=== PATIENT | male | born 1975 | race African-American/Black ===

== ENCOUNTER 2024-10-27 12:55 | Inpatient (IN) | payer SELFPAY ==
[~2024-10-27] VITALS: Ht 188 cm; Wt 164.5 kg
[2024-10-27 15:14] LABS: BASOPHILS % 0.6 % (0.0-2.0); CHLORIDE 99 mEq/L (98-107); EOSINOPHILS % 1.2 % (0.0-5.0); HEMATOCRIT. 46.8 % (42.0-52.0); HEMOGLOBIN. 15.4 g/dL (14.0-18.0); MEAN CORPUSCULAR HEMOGLOBIN 30.5 pg (28.0-32.0); MEAN CORPUSCULAR HGB CONC 32.8 g/dL (31.0-37.0); MEAN CORPUSCULAR VOLUME 93.2 fL (80.0-94.0); MEAN PLATELET VOLUME 9.7 fl (7.4-10.4); MONOCYTES % 6.9 % (2.0-8.0); NEUTROPHILS % 59.3 % (40.0-76.0); PLATELET 341 x1000/uL (130-400); POTASSIUM 4.3 mEq/L (3.5-5.1); RED BLOOD CELL COUNT 5.03 mill/uL (4.7-6.1); RED CELL DISTRIBUTION WIDTH 13.9 % (11.6-14.6); SODIUM 131 mEq/L (136-145); WHITE BLOOD COUNT 8.7 x1000/uL (4.5-11.0)
[2024-10-27 15:15] LABS: CALCIUM 10.3 mg/dL (8.7-10.4); CARBON DIOXIDE 14 mEq/L (21-32)
[2024-10-27 15:20] LABS: CREATININE 1.5 mg/dL (0.6-1.3); UREA NITROGEN BLOOD 10 mg/dL (9-23)
[2024-10-27 15:33] LABS: CLARITY URINE CLEAR (CLEAR); COLOR URINE YELLOW (YELLOW); GLUCOSE URINE 3+ (NEGATIVE); KETONES URINE 4+ (NEGATIVE); LEUKOCYTE ESTERASE URINE NEGATIVE (NEGATIVE); NITRITE URINE NEGATIVE (NEGATIVE); OCCULT BLOOD URINE 1+ (NEGATIVE); PH URINE 5.5 (4.5-8.0); PROTEIN URINE 1+ (NEGATIVE); SPECIFIC GRAVITY URINE 1.037 (1.005-1.030)
[2024-10-27 15:48] LABS: BACTERIA URINE FEW; RBC URINE NONE SEEN /hpf (0-2); SQUAMOUS EPITHELIAL CELL URINE NONE SEEN /lpf (RARE/1+); WBC URINE 0-2 /hpf (0-2); YEAST URINE NONE SEEN
[2024-10-27 15:52] LABS: GLUCOSE 437 mg/dL (70-105)
[2024-10-27] MEDS ORDERED: DEXTROSE 50% WATER 50ML SYRINGE IV PRN ×2 (16:00→17:45)
[2024-10-27] MEDS ORDERED: BLOOD SUGAR DIAGNOSTIC STRIP TEST PRN ×2 (16:00→17:45)
[2024-10-27] MEDS ORDERED: SODIUM CHLORIDE 0.9% 1,000 ML IV SCH (16:00)
[2024-10-27] MEDS ORDERED: KCL 20MEQ/100ML PREMIX 100 ML IV PRN (16:00)
[2024-10-27] MEDS ORDERED: MAGNESIUM 2 G PREMIX 50 ML IV PRN ×2 (16:00→17:45)
[2024-10-27] MEDS: BLOOD SUGAR DIAGNOSTIC STRIP TEST SCH ×2 (16:00→17:45)
[2024-10-27] MEDS ORDERED: INSULIN REGULAR (DRIP) 100 UNITS in SODIUM CHLORIDE 0.9% 99 ML IV SCH ×2 (16:00→17:45)
[2024-10-27] MEDS ORDERED: DEXT 5%/LACTATED RINGERS 1,000 ML IV SCH (16:00)
[2024-10-27] MEDS ORDERED: SODIUM PHOSPHATE 15 MMOL in SODIUM CHLORIDE 0.9% 245 ML IV PRN (16:00)
[2024-10-27] MEDS ORDERED: POTASSIUM CHLORIDE 40 MEQ in SODIUM CHLORIDE 0.9% 230 ML IV PRN (16:00)
[2024-10-27 16:06] LABS: BETA HYDROXYBUTYRATE 6.9 mMol/L (0.0-0.3)
[2024-10-27] MEDS: SODIUM CHLORIDE 0.9% 1,000 ML IV ONE (16:10)
[2024-10-27 16:43] LABS: BG BASE EXCESS -14.3 mmol/L (-2.0-3.0); BG CARBOXYHEMOGLOBIN 0.7 % (0.5-1.5); BG DEOXYHEMOGLOBIN 2.5 % (0.0-5.0); BG HCO3 ACT 10.3 mmol/L (21.0-28.0); BG OXYGEN SATURATION 97.5 % (94.0-98.0); BG OXYHEMOGLOBIN 96.8 % (94.0-98.0); BG PCO2 22.6 mmHg (35.0-48.0); BG PH 7.275 (7.350-7.450); BG PO2 99.4 mmHg (83.0-108.0); BG SAMPLE SITE RIGHT RADIAL; BG TOTAL HEMOGLOBIN 15.3 g/dL (13.5-17.5); BG VENT MODE ROOM AIR
[2024-10-27 17:22] LABS: PHOSPHORUS 3.7 mg/dL (2.5-4.9)
[2024-10-27] MEDS: INSULIN REGULAR 100U/100ML PMX 100 ML IV SCH ×2 (17:42→18:28)
[2024-10-27] MEDS ORDERED: IPRATROPIUM/ALBUTEROL 0.5-3(2.5)MG/3ML NEB HHN PRN (17:45)
[2024-10-27] MEDS: DEXT 5%/0.9% NACL 1,000 ML IV SCH (17:45)
[2024-10-27] MEDS: SODIUM CHLORIDE 0.9% 1,000 ML IV SCH (18:29)
[2024-10-27] MEDS: INSULIN REGULAR (HUMULIN R) 1000UNITS/10ML VIAL IV NR (18:32)
[2024-10-27] MEDS: PANTOPRAZOLE SODIUM 40 MG/VIAL IV NR (18:38)
[2024-10-27] MEDS ORDERED: CLONIDINE 0.1MG TABLET PO PRN (19:30)
[2024-10-27 21:10] LABS: CHLORIDE 107 mEq/L (98-107); POTASSIUM 3.4 mEq/L (3.5-5.1); SODIUM 140 mEq/L (136-145)
[2024-10-27 21:11] LABS: CALCIUM 9.9 mg/dL (8.7-10.4); CARBON DIOXIDE 17 mEq/L (21-32)
[2024-10-27 21:16] LABS: CREATININE 1.3 mg/dL (0.6-1.3); UREA NITROGEN BLOOD 10 mg/dL (9-23)
[2024-10-27 21:18] LABS: CREATINE KINASE 317 IU/L (46-171); PHOSPHORUS 1.6 mg/dL (2.5-4.9)
[2024-10-27 21:41] LABS: GLUCOSE 212 mg/dL (70-105)
[2024-10-27] MEDS: SODIUM PHOSPHATE 15 MMOL in SODIUM CHLORIDE 0.9% 245 ML IV PRN (22:51)
[2024-10-27] MEDS: POTASSIUM CHLORIDE 40 MEQ in SODIUM CHLORIDE 0.9% 230 ML IV PRN (23:46)
[2024-10-28 01:58] LABS: CALCIUM 9.5 mg/dL (8.7-10.4); CARBON DIOXIDE 19 mEq/L (21-32); CHLORIDE 109 mEq/L (98-107); POTASSIUM 3.9 mEq/L (3.5-5.1); SODIUM 140 mEq/L (136-145)
[2024-10-28 02:03] LABS: CREATININE 1.2 mg/dL (0.6-1.3); GLUCOSE 195 mg/dL (70-105)
[2024-10-28 02:04] LABS: UREA NITROGEN BLOOD 10 mg/dL (9-23)
[2024-10-28 02:06] LABS: PHOSPHORUS 2.5 mg/dL (2.5-4.9)
[2024-10-28 05:01] LABS: BASOPHILS % 1.1 % (0.0-2.0); EOSINOPHILS % 1.8 % (0.0-5.0); HEMOGLOBIN. 13.7 g/dL (14.0-18.0); LYMPHOCYTES % 28.9 % (20.0-50.0); MEAN CORPUSCULAR HEMOGLOBIN 30.4 pg (28.0-32.0); MEAN CORPUSCULAR HGB CONC 33.4 g/dL (31.0-37.0); MONOCYTES % 11.5 % (2.0-8.0); NEUTROPHILS % 56.7 % (40.0-76.0); PLATELET 332 x1000/uL (130-400); RED CELL DISTRIBUTION WIDTH 13.6 % (11.6-14.6); WHITE BLOOD COUNT 9.2 x1000/uL (4.5-11.0)
[2024-10-28 05:04] LABS: CARBON DIOXIDE 21 mEq/L (21-32); CHLORIDE 112 mEq/L (98-107); POTASSIUM 3.5 mEq/L (3.5-5.1); SODIUM 144 mEq/L (136-145)
[2024-10-28 05:05] LABS: CALCIUM 9.1 mg/dL (8.7-10.4)
[2024-10-28 05:10] LABS: CREATININE 1.2 mg/dL (0.6-1.3); GLUCOSE 201 mg/dL (70-105); TRIGLYCERIDE 110 mg/dL (0-150); UREA NITROGEN BLOOD 10 mg/dL (9-23)
[2024-10-28 05:11] LABS: LDL CHOLESTEROL 133 mg/dL (5-100)
[2024-10-28 05:12] LABS: CHOLESTEROL 181 mg/dL (<200); HDL CHOLESTEROL 25 mg/dL (>55); PHOSPHORUS 2.2 mg/dL (2.5-4.9)
[2024-10-28] MEDS: KCL 20MEQ/100ML PREMIX 100 ML IV PRN (05:40)
[2024-10-28 08:22] LABS: CHLORIDE 112 mEq/L (98-107); POTASSIUM 3.7 mEq/L (3.5-5.1); SODIUM 140 mEq/L (136-145)
[2024-10-28 08:23] LABS: CARBON DIOXIDE 19 mEq/L (21-32)
[2024-10-28 08:24] LABS: CALCIUM 9.4 mg/dL (8.7-10.4)
[2024-10-28 08:28] LABS: CREATININE 1.1 mg/dL (0.6-1.3); GLUCOSE 244 mg/dL (70-105); UREA NITROGEN BLOOD 9 mg/dL (9-23)
[2024-10-28 12:30] LABS: CHLORIDE 109 mEq/L (98-107); POTASSIUM 4.1 mEq/L (3.5-5.1); SODIUM 137 mEq/L (136-145)
[2024-10-28 12:31] LABS: CALCIUM 9.1 mg/dL (8.7-10.4); CARBON DIOXIDE 18 mEq/L (21-32)
[2024-10-28 12:36] LABS: CREATININE 1.1 mg/dL (0.6-1.3); GLUCOSE 340 mg/dL (70-105); UREA NITROGEN BLOOD 8 mg/dL (9-23)
[2024-10-28] MEDS ORDERED: INSULIN LISPRO 100 UNITS/ML SUBCUT SCH (12:50)
[2024-10-28 14:30] VITALS: BP 146/80; PULSE 81; RESP 18; TEMP 36
[2024-10-28] MEDS: SODIUM CHLORIDE 0.45% 1,000 ML IV SCH (14:33)
[2024-10-28] MEDS ORDERED: DEXTROSE 50% WATER 50ML SYRINGE IV PRN (15:15)
[2024-10-28] MEDS: INSULIN GLARGINE 100 UNITS/ML SUBCUT NR (15:57)
[2024-10-28 16:00] VITALS: BP 142/84; PULSE 70; RESP 19; TEMP 36.3; O2SAT 99
[2024-10-28] MEDS: INSULIN LISPRO 100 UNITS/ML SUBCUT SCH ×2 (17:33→18:01)
[2024-10-28 18:10] LABS: CHLORIDE 109 mEq/L (98-107); POTASSIUM 4.2 mEq/L (3.5-5.1); SODIUM 139 mEq/L (136-145)
[2024-10-28 18:12] LABS: CALCIUM 9.3 mg/dL (8.7-10.4); CARBON DIOXIDE 22 mEq/L (21-32)
[2024-10-28] MEDS ORDERED: HYDRALAZINE 20MG/ML VIAL IV PRN (18:15)
[2024-10-28 18:17] LABS: GLUCOSE 292 mg/dL (70-105); UREA NITROGEN BLOOD 10 mg/dL (9-23)
[2024-10-28 20:00] VITALS: BP 131/69; PULSE 79; RESP 19; TEMP 36.3; O2SAT 98
[2024-10-28] MEDS: ENOXAPARIN 40MG/0.4ML SYR SUBCUT SCH (20:57)
[2024-10-28] MEDS ORDERED: INSULIN GLARGINE 100 UNITS/ML SUBCUT SCH (22:00)
[2024-10-29] VITALS: BP 129/72; PULSE 82; RESP 19; TEMP 36.1; O2SAT 100
[2024-10-29 04:00] VITALS: BP 142/69; PULSE 70; RESP 18; TEMP 36.3; O2SAT 98
[2024-10-29] MEDS: INSULIN LISPRO 100 UNITS/ML SUBCUT SCH ×3 (06:48→18:36)
[2024-10-29] MEDS: BLOOD SUGAR DIAGNOSTIC STRIP TEST SCH (06:49)
[2024-10-29 08:00] VITALS: BP 127/67; PULSE 84; RESP 18; TEMP 36.4; O2SAT 100
[2024-10-29 08:13] LABS: CALCIUM 8.8 mg/dL (8.7-10.4); CHLORIDE 107 mEq/L (98-107); POTASSIUM 3.6 mEq/L (3.5-5.1); SODIUM 138 mEq/L (136-145)
[2024-10-29 08:14] LABS: CARBON DIOXIDE 19 mEq/L (21-32)
[2024-10-29 08:19] LABS: GLUCOSE 368 mg/dL (70-105); UREA NITROGEN BLOOD 9 mg/dL (9-23)
[2024-10-29 08:21] LABS: PHOSPHORUS 2.9 mg/dL (2.5-4.9)
[2024-10-29 08:35] LABS: BASOPHILS % 0.5 % (0.0-2.0); EOSINOPHILS % 2.3 % (0.0-5.0); HEMATOCRIT. 38.7 % (42.0-52.0); HEMOGLOBIN. 12.9 g/dL (14.0-18.0); LYMPHOCYTES % 32.5 % (20.0-50.0); MEAN CORPUSCULAR HGB CONC 33.4 g/dL (31.0-37.0); MEAN PLATELET VOLUME 9.6 fl (7.4-10.4); MONOCYTES % 11.1 % (2.0-8.0); NEUTROPHILS % 53.6 % (40.0-76.0); PLATELET 308 x1000/uL (130-400); RED CELL DISTRIBUTION WIDTH 13.6 % (11.6-14.6); WHITE BLOOD COUNT 8.3 x1000/uL (4.5-11.0)
[2024-10-29] MEDS: PANTOPRAZOLE SODIUM 40 MG/VIAL IV SCH (09:00)
[2024-10-29 12:00] VITALS: BP 126/70; PULSE 86; RESP 19; TEMP 36.6; O2SAT 99
[2024-10-29] MEDS: INSULIN GLARGINE 100 UNITS/ML SUBCUT SCH ×2 (12:00→20:58)
[2024-10-29 16:00] VITALS: BP 113/55; PULSE 91; RESP 18; TEMP 36.5; O2SAT 98
[2024-10-29] MEDS: METFORMIN HCL 500MG TABLET PO SCH (18:35)
[2024-10-29 20:00] VITALS: BP 118/60; PULSE 89; RESP 18; TEMP 36.3; O2SAT 98
[2024-10-30] VITALS: BP 116/58; PULSE 89; RESP 18; TEMP 36.5; O2SAT 98
[2024-10-30 04:00] VITALS: BP 124/68; PULSE 78; RESP 17; TEMP 36.4; O2SAT 99
[2024-10-30 08:00] VITALS: BP 123/77; PULSE 78; RESP 18; TEMP 36.5; O2SAT 100
[2024-10-30] MEDS: FAMOTIDINE 20MG/2ML VIAL IV SCH (09:02)
[2024-10-30] MEDS: MAGNESIUM 2 G PREMIX 50 ML IV NR (10:49)
[2024-10-30 12:00] VITALS: BP 114/65; PULSE 69; RESP 17; TEMP 36.3; TEMP 36.4; O2SAT 98
[2024-10-30 15:47] VITALS: BP 114/65; PULSE 69; TEMP 97.4; O2SAT 98
[2024-10-30 16:00] VITALS: BP 129/81; PULSE 98; RESP 20; TEMP 36.3; O2SAT 100
== END 2024-10-30 16:30 | disposition home or self-care (01) | DRG 133 ==
LOC: ER 12:55 → EDBEDREQ 15:28 → MICUSO 16:02 → EDBEDREQ 16:13 → EDBEDREQSVC 16:13 → 6WST 10-28 14:29
PROVIDERS: ADMIT Internal Medicine; ATTEND Internal Medicine
DX: J96.01 Acute respiratory failure with hypoxia (principal); E11.10 Type 2 diabetes mellitus with ketoacidosis without coma; E87.3 Alkalosis; N17.9 Acute kidney failure, unspecified; E87.1 Hypo-osmolality and hyponatremia; I16.1 Hypertensive emergency; E11.22 Type 2 diabetes mellitus with diabetic chronic kidney disease; E86.0 Dehydration; I12.9 Hypertensive chronic kidney disease with stage 1 through stage 4 chronic kidney disease, or unspecified chronic kidney disease; N18.9 Chronic kidney disease, unspecified; E78.2 Mixed hyperlipidemia; E66.01 Morbid (severe) obesity due to excess calories; Z91.148 Patient's other noncompliance with medication regimen for other reason; Z68.42 Body mass index [BMI] 45.0-49.9, adult
CPT/HCPCS: 36415; 36600; 71045; 80048; 80051; 80061; 81003; 82010; 82375; 82550; 82805; 82962; 83036; 83735; 83930; 84100; 85025; 93005; 99285; A4606; J1650; J1815; J2470; J3475; J3480; J3490; J7030; J7121